=== PATIENT | male | born 1995 | race Caucasian/White ===

== ENCOUNTER 2017-09-19 18:27 | Emergency (ER) | payer OTHER, SELFPAY ==
[2017-09-19 18:28] VITALS: BP 133/82; PULSE 101; RESP 16; TEMP 36.9; O2SAT 97; BMI 30.8
--- NOTE | 2017-09-19 19:05 | ED.DCSUM_ITS ---
- ER Visit Summary Date of Service: 09/19/17 Chief Complaint: Right back abscess History of Present Illness: The patient is a 22 M who states he has had an abscess on his back for the past couple of days. He has a history of these. He states he has been messing with it and incising it and draining it at home. He denies any fevers. Physical Examination: Vital signs are reviewed. He has a 2 x 2 centimeter abscess on the right posterior shoulder area with induration. No significant fluctuance. Mild erythema Test Results: None indicated Emergency Department Course and Treatment: Patient had an I&D. 2 cc lidocaine was used to anesthetize the area. A cruciate incision was made over the dome the abscess. There is mild purulent material that returned. There was induration noted around that area. I will place the patient on Bactrim. He will follow up with his PCP Treatment Plan: [] Disposition: Discharge Impression: Right back abscess This note was generated with [employer] dictation software. It may contain incorrect words, spelling, and punctuation that were not noted in review of the chart prior to signing ED Disposition - Plan for ED Patient: Chief Complaint: Abscess Referrals: Care Physician,No Primary [Primary Care Provider] -
--- NOTE | 2017-09-19 19:05 | ED.DEP ---
ED Disposition - Plan for ED Patient: Disposition: Home or Assisted Living Chief Complaint: Abscess Instructions: ED Abscess IandD Prescriptions: Smz/Tmp Ds [Bactrim Ds] 1 tab PO BID #14 tab Referrals: Care Physician,No Primary [Primary Care Provider] -
[2017-09-19 19:13] VITALS: RESP 18; TEMP 37.2
[2017-09-19] MEDS: Smz/Tmp Ds Tablet 1 TABLET PO (19:13)
== END 2017-09-19 19:14 | disposition home or self-care (01) ==
PROVIDERS: Emergency Provider Emergency Medicine
DX: L02.212 Cutaneous abscess of back [any part, except buttock and flank] (principal); Z72.0 Tobacco use
CPT/HCPCS: 10060; 99283

== ENCOUNTER 2018-02-24 10:07 | Emergency (ER) | payer OTHER, SELFPAY ==
[2018-02-24 10:08] VITALS: BP 126/75; PULSE 76; RESP 17; TEMP 36.8; O2SAT 99; BMI 31.0
--- NOTE | 2018-02-24 10:26 | RAD_ITS ---
STUDY: X-RAY - RIGHT HAND REASON FOR EXAM: Male, 22 years old. Infection to the thumb TECHNIQUE: 3 view(s) of the hand. COMPARISON: None. FINDINGS: Normal radiocarpal articulation. Normal distal radioulnar joint. Normal visualized carpal bones. Normal carpal articulations Normal carpometacarpal articulation of the thumb. Normal second through fifth carpometacarpal joints. Normal metacarpi. Normal metacarpophalangeal joint of the thumb. Normal interphalangeal joint of the thumb. Normal proximal and distal phalanges of the thumb. Normal metacarpophalangeal joints of the second through fifth fingers. Normal proximal and distal interphalangeal joints of the second through fifth fingers. Normal phalanges of the second through fifth fingers. Soft tissue swelling of the thumb. No subcutaneous emphysema. RAD/Hand Min 3 Views IMPRESSION: No acute bony pathology. Electronically Signed: Marquez Delgado DO at 11:05 EDT Tel [phone], Service support ,
[2018-02-24 10:57] LABS: Erythrocyte Sedimentation Rate 15 mm/hr (0-15)
[2018-02-24 10:59] LABS: Absolute Lymphocyte Count 3.29 X10^3/ul (0.83-4.51); Absolute Neutrophil Count 3.7 X10^3/uL (2.0-7.7); Basophil# 0.05 X10^3/uL; Basophil% 0.6 % (0-1); Eosinophil# 0.42 X10^3/uL; Hematocrit 46.4 % (40-54); Hemoglobin 15.4 g/dl (13.0-16.5); Lymphocyte # 3.29 X10^3/ul (4.0); Lymphocyte % 39.4 % (19-41); Mean Corp Hgb Conc 33.2 g/gl (32-36); Mean Corpuscular Hgb 29.8 pg (27.0-32.0); Mean Corpuscular Volume 89.9 fL (80-94); Monocyte# 0.88 X10^3/uL; Monocyte% 10.5 % (0-10); Neutrophil # 3.69 X10^3/uL (2.7-7.7); Neutrophil % 44.3 % (47-70); POSITIVE COUNT NO; POSITIVE DIFFERENTIAL NO; POSITIVE MORPHOLOGY NO; Platelet Count 236 K/mm3 (150-450); RBC Distribution Width CV 12.5 % (11.6-14.6); RBC Distribution Width SD 41.1 fl (35.1-43.9); Red Blood Count 5.16 M/mm3 (4.6-6.2); White Blood Count 8.4 K/mm3 (4.4-11.0)
[2018-02-24 11:06] LABS: BUN 13 mg/dL (7-18); BUN/Creat Ratio 14.4 RATIO (10-20); Calcium,Total 9.3 mg/dL (8.5-10.1); Chloride 101 mmol/L (98-107); EST Glomerular Filtration Rate 111 mL/min (>60); Est Glom Filt Rate - Afr Amer 134 mL/min (>60); Estimated Creatinine Clearance 128.74 ml/min; Glucose 102 mg/dL (74-106); Potassium 4.3 mmol/L (3.5-5.1); Sodium Level 139 mmol/L (136-145)
[2018-02-24 11:07] LABS: Anion Gap 6 (5-15); CRP 3.84 mg/L (0.0-3.0)
--- NOTE | 2018-02-24 11:30 | ED.VISSUMM ---
- ER Visit Summary Date of Service: 02/24/18 Chief Complaint: Right thumb wound History of Present Illness: The patient is a 22 M who presents with a right thumb wound. He initially noted pain redness and swelling about 2 weeks ago. He was seen at an outside emergency department and was started on Bactrim and Keflex which he recently completed. He then had some skin peeling and pulled some skin off the front part of his thumb. He now has a small open wound there. He only complains of pain with movement which is mild. No fevers. No nausea. He is not diabetic. Physical Examination: Afebrile vitals are normal Moist mucous membranes Heart regular rate and rhythm Lungs are clear Abdomen soft Patient does have soft tissue swelling of the right thumb as well as erythema along the palmar side there is an open wound about a centimeter in diameter near the interphalangeal joint he has active full range of motion he does not have pain with passive range of motion of the thumb his sensation is intact distally it is nontender Test Results: CBC BMP ESR normal. CRP slightly elevated at 3.8. Hand x-ray shows no acute bony pathology. Emergency Department Course and Treatment: Patient presents with a wound of his right thumb as well as some evidence of cellulitis. He does not have any clear evidence of osteomyelitis at this time. Given that his symptoms have been present for 2 weeks I do believe close outpatient follow-up appropriate and I do not see an indication for hospitalization at this time. I spoke to Dr. Vázquez who can see the patient although he is out of town this week he can see the patient next week. Patient was given clear instructions that if he develops any new or worsening symptoms he should return here to the emergency department for reevaluation. We will place him on clindamycin. He was also given contact information for Dr. Connors who he could also try to follow-up with with. Treatment Plan: [] Disposition: Discharge Impression: Right thumb cellulitis Right thumb wound This note was generated with [employer] dictation software. It may contain incorrect words, spelling, and punctuation that were not noted in review of the chart prior to signing ED Disposition - Plan for ED Patient: Chief Complaint: Cellulitis Referrals: Care Physician,No Primary [Primary Care Provider] -
--- NOTE | 2018-02-24 11:34 | ED.DCSUM_ITS ---
- ER Visit Summary Date of Service: 02/24/18 Chief Complaint: Right thumb wound History of Present Illness: The patient is a 22 M who presents with a right thumb wound. He initially noted pain redness and swelling about 2 weeks ago. He was seen at an outside emergency department and was started on Bactrim and Keflex which he recently completed. He then had some skin peeling and pulled some skin off the front part of his thumb. He now has a small open wound there. He only complains of pain with movement which is mild. No fevers. No nausea. He is not diabetic. Physical Examination: Afebrile vitals are normal Moist mucous membranes Heart regular rate and rhythm Lungs are clear Abdomen soft Patient does have soft tissue swelling of the right thumb as well as erythema along the palmar side there is an open wound about a centimeter in diameter near the interphalangeal joint he has active full range of motion he does not have pain with passive range of motion of the thumb his sensation is intact distally it is nontender Test Results: CBC BMP ESR normal. CRP slightly elevated at 3.8. Hand x-ray shows no acute bony pathology. Emergency Department Course and Treatment: Patient presents with a wound of his right thumb as well as some evidence of cellulitis. He does not have any clear evidence of osteomyelitis at this time. Given that his symptoms have been present for 2 weeks I do believe close outpatient follow-up appropriate and I do not see an indication for hospitalization at this time. I spoke to Dr. Vázquez who can see the patient although he is out of town this week he can see the viola ent next week. Patient was given clear instructions that if he develops any new or worsening symptoms he should return here to the emergency department for reevaluation. We will place him on clindamycin. He was also given contact information for Dr. Connors who he could also try to follow-up with with. Treatment Plan: [] Disposition: Discharge Impression: Right thumb cellulitis Right thumb wound This note was generated with [employer] software. It may contain incorrect words, spelling, and punctuation that were not noted in review of the chart prior to signing ED Disposition - Plan for ED Patient: Chief Complaint: Cellulitis Referrals: Care Physician,No Primary [Primary Care Provider] -
--- NOTE | 2018-02-24 11:38 | ED.DEP ---
ED Disposition - Plan for ED Patient: Chief Complaint: Cellulitis Instructions: ED Infec Skin Cellulitis Prescriptions: Clindamycin HCl [Cleocin] 300 mg PO Q6H #30 cap Referrals: Care Physician,No Primary [Primary Care Provider] - Leo Vázquez MD [STAFF PHYSICIAN] - Marion Connors DO [STAFF PHYSICIAN] -
[2018-02-24 11:53] VITALS: BP 120/75; PULSE 72; RESP 16; O2SAT 100
== END 2018-02-24 11:53 | disposition home or self-care (01) ==
PROVIDERS: Emergency Provider Emergency Medicine
DX: S61.001A Unspecified open wound of right thumb without damage to nail, initial encounter (principal); L03.011 Cellulitis of right finger; X58.XXXA Exposure to other specified factors, initial encounter; Y93.9 Activity, unspecified; Y92.9 Unspecified place or not applicable; Z72.0 Tobacco use
CPT/HCPCS: 73130; 80048; 85025; 85652; 86140; 99284; A4216